=== PATIENT | female | born 1955 | race Caucasian/White ===

== ENCOUNTER 2022-10-22 14:28 | Emergency (ER) | payer OTHER, MEDICAID ==
[~2022-10-22] VITALS: Ht 157.5 cm; Wt 59.0 kg
--- NOTE | 2022-10-22 14:45 | NUR ---
Pt provided urine specimen for analysis. delivered to lab.
[2022-10-22 14:46] VITALS: BP_SYST 111
[2022-10-22 15:07] LABS: BILIRUBIN,URINE NEGATIVE (NEGATIVE); BLOOD, URINE TRACE (NEGATIVE); COLOR,URINE YELLOW (YELLOW); GLUCOSE,URINE NEGATIVE (NEGATIVE); KETONES,URINE NEGATIVE (NEGATIVE); LEUKOCYTE ESTERASE ,URINE 2+ (NEGATIVE); NITRITE, URINE NEGATIVE (NEGATIVE); PROTEIN URINE NEGATIVE (NEGATIVE); UROBILINOGEN,URINE 0.2 (0.2-1.0)
[2022-10-22 15:08] LABS: CLARITY/URINE HAZY (CLEAR)
[2022-10-22 15:15] LABS: RBC,URINE 0-3 /HPF (0-3)
[2022-10-22] MEDS ORDERED: IBUPROFEN 800 MG TABLET PO ONE (15:15)
[2022-10-22] MEDS ORDERED: HYDROcodone/ACETAMIN 10-325 MG TAB PO ONE (15:15)
[2022-10-22 15:16] LABS: BACTERIA,URINE None Seen /HPF (None Seen); MUCUS,URINE None Seen /LPF (None Seen); WBC,URINE 50-80 /HPF (0-3)
--- NOTE | 2022-10-22 15:22 | NUR ---
ER at bedside examining patient.
[2022-10-22 15:42] LABS: BASOPHILS # (AUTO) 0.1 K/uL (0.0-0.2); BASOPHILS % (AUTO) 0.8 % (0.0-2.0); EOSINOPHILS # (AUTO) 0.2 K/uL (0.0-0.4); EOSINOPHILS % (AUTO) 2.8 % (0.0-4.0); HEMATOCRIT 41.1 % (36-48); HEMOGLOBIN 13.1 g/dL (12.0-16.0); LYMPHOCYTES # (AUTO) 2.5 K/uL (1.0-5.5); LYMPHOCYTES % (AUTO) 32.2 % (20.5-51.5); MEAN CORPUSCULAR HEMOGLOBIN 26 pg (27-31); MEAN CORPUSCULAR HGB CONC 32 % (32-36); MEAN CORPUSCULAR VOLUME 83 fL (79.0-98.0); MONOCYTES # (AUTO) 0.4 K/uL (0.0-1.0); MONOCYTES % (AUTO) 5.7 % (1.7-9.3); NEUTROPHILS # (AUTO) 4.5 K/uL (1.8-7.7); NEUTROPHILS % (AUTO) 58.5 % (40.0-70.0); PLATELET COUNT (AUTO) 257 K/uL (130-430); RED BLOOD CELL COUNT(AUTO) 4.97 MIL/uL (4.2-6.2); RED CELL DISTRIBUTION WIDTH 15.9 % (9.0-15.0); WHITE BLOOD COUNT (AUTO) 7.6 K/uL (4.8-10.8)
--- NOTE | 2022-10-22 15:49 | NUR ---
Pt medicated per MD order. Pt states would like to have an IV for future pain medication to avoid IM injectable. Pt states PO meds are non effective. reassured pt to allow for MD orders to attempt to relieve pain.
[2022-10-22] MEDS ORDERED: NITR-85 PO (15:55)
[2022-10-22] MEDS ORDERED: PHEN-726 PO (15:55)
[2022-10-22] MEDS ORDERED: cefTRIAXone 1 GM in LIDOCAINE 1%, 20 ML MDV 2.1 ML IM ONE (16:00)
[2022-10-22] MEDS ORDERED: PHENAZOPYRIDINE HCL 100 MG TABLET PO ONE (16:15)
[2022-10-22 16:28] LABS: ALANINE AMINOTRANSFERASE 17 U/L (12-78); ALBUMIN 3.5 g/dL (3.4-4.8); AMYLASE 62 U/L (0-100); ANION GAP 9 (5-15); ASPARTATE AMINOTRANSFERASE 15 U/L (10-37); C-REACTIVE PROTEIN QUANT < 0.2 mg/dL (0-0.5); CALCIUM 8.8 mg/dL (8.4-11.0); CHLORIDE 108 mmol/L (98-107); CREATININE 0.99 mg/dL (0.55-1.30); GFR AFRICAN AMERICAN 72 mL/min (>90); GLUCOSE 116 mg/dL (70-99); LIPASE 114 U/L (73-393); TOTAL BILIRUBIN 0.2 mg/dL (0.0-1.0); UREA NITROGEN, BLOOD 16 mg/dL (8-21)
[2022-10-22] MEDS ORDERED: LORazepam 1 MG TABLET PO ONE (16:30)
--- NOTE | 2022-10-22 19:08 | NUR ---
Patient given written and verbal discharge instructions and verbalizes understanding. ER MD discussed with patient the results and treatment provided. Patient in stable condition. ID arm band removed. Rx of abx given. Patient educated on pain management and to follow up with PMD. Opportunity for questions provided and answered. Medication side effect fact sheet provided.
[2022-10-22 19:09] VITALS: BP_SYST 111
== END 2022-10-22 19:09 | disposition home or self-care (01) ==
LOC: SED 14:28
DX: N39.0 Urinary tract infection, site not specified (principal); R30.0 Dysuria; I10 Essential (primary) hypertension; Z79.899 Other long term (current) drug therapy
CPT/HCPCS: 99283; 80053; 81000; 82150; 83690; 85025; 86140; 87086; 36415; 96372; J0696; J2001